=== PATIENT | male | born 1940 | race Caucasian/White ===

== ENCOUNTER 2016-05-29 07:54 | Outpatient (CLI) ==
[2016-01-30 23:04] VITALS: BMI 30.9
--- NOTE | 2016-05-29 08:43 | US ---
EXAM: Bilateral carotid artery Doppler History: Ataxia and dizziness. Comparison: Carotid Doppler 05/26/2015 Technique: Multiple sonographic images through the bilateral internal carotid arteries were obtaine d. Color duplex Doppler was used to interrogate vascular flow. Findings: The right ICA peak systolic velocity is within normal limits measuring 0.8 meters per second. The r ight ICA/cca PSV ratio is normal at 1.4. The right vertebral artery is patent and demonstrates ante grade flow. Shaw scale images demonstrate moderate plaque buildup within the right internal carotid artery. The left ICA peak systolic velocity is within normal limits measuring 0.7 meters per second. The le ft ICA/cca PSV ratio is normal at 1.1. The left vertebral artery is patent and demonstrates antegra de flow. Shaw scale images demonstrate moderate plaque buildup within the left internal carotid art hesham. Impression: 1. Peak systolic velocities and ratios indicate no significant hemodynamic stenosis of the bilatera l internal carotid arteries. 2. However, the ratios are within normal limits. Consider correlation with CTA of the neck for cla rification.
--- NOTE | 2016-05-29 15:04 | MRI ---
EXAM: Brain MRI with and without contrast. HISTORY: Ataxia and dizziness. COMPARISON: Head CT 01/30/2016, brain MRI 05/26/2015 and brain MRI 10/19/2013. TECHNIQUE: Multiplanar, multisequence MR images were acquired of the brain before and after adminis tration of intravenous contrast. 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 There is moderate lateral and third ventriculomegaly. The distance between the frontal horns of the lateral ventricl es measures 5 cm and the third ventricle measures 1.4 cm in transverse diameter without change from the previous MRIs allowing for differences in technique. The lateral and third ventriculomegaly is disproportionate to the mild widening of the sulci. Burgess index is 0.38. The brain parenchyma has no diffusion restriction to suggest acute hypoperfusion or infarction. The re is a band of periventricular FLAIR hyperintensity and small FLAIR hyperintensities are present in the supratentorial white matter compatible with mild leukomalacia. There is a chronic lacuna in ea ch thalamus unchanged from previously. There is no abnormal dark gradient echo signal in the parenc hyma. After administration of contrast, no enhancing masses are identified. There is mild upper eloise wing of the corpus callosum due to the lateral ventriculomegaly. The pituitary gland is low normal in size and has homogeneous contrast enhancement. The infundibulum is midline. There are no intraorbital masses. There has been previous lens surgery bilaterally. Minor scattered mucosal thickening is present in the ethmoid air cells bilaterally. Middle ears and mastoids are unremarkable. No abnormal contrast enhancement is present in the internal auditory ca nals or labyrinthine structures. Flow voids are present in the major intracranial arteries and dural venous sinuses. There is ankylosis of the occipital condyles and lateral masses of C1 bilaterally. There is elongat ion of the odontoid process suggestive of a developmental variant. Cervical spine CT could better d efine the anatomy. Moderate discogenic disease is present at C4-5 which mildly indents the cervical cord and may cause mild spinal stenosis. IMPRESSION: 1. No intracranial mass, hemorrhage or acute cerebral infarct. 2. No change moderate lateral and third ventriculomegaly that is disproportionate to the mild widen ing of the sulci. 3. Mild chronic ischemic small vessel disease and old lacunes bilateral thalami.
== END 2016-05-29 07:55 | disposition home or self-care (01) ==
LOC: RAD 07:54
PROVIDERS: ATTEND Internal Medicine
DX: R42 Dizziness and giddiness (principal); R27.0 Ataxia, unspecified

== ENCOUNTER 2017-11-12 17:03 | Outpatient (CLI) ==
[2016-01-30 23:04] VITALS: BMI 30.9
== END 2017-11-12 17:20 | disposition short-term general hospital (02) ==
LOC: AMBL 17:03
PROVIDERS: ATTEND Emergency Medicine
DX: R47.81 Slurred speech (principal); W19.XXXA Unspecified fall, initial encounter

== ENCOUNTER 2018-03-17 20:13 | Outpatient (CLI) ==
[2016-01-30 23:04] VITALS: BMI 30.9
== END 2018-03-17 20:34 | disposition short-term general hospital (02) ==
LOC: AMBL 20:13
PROVIDERS: ATTEND Family Medicine
DX: R10.9 Unspecified abdominal pain (principal); R19.7 Diarrhea, unspecified; I49.1 Atrial premature depolarization; I63.9 Cerebral infarction, unspecified; I69.354 Hemiplegia and hemiparesis following cerebral infarction affecting left non-dominant side